=== PATIENT | male | born 1955 | race Caucasian/White ===

== ENCOUNTER 2019-07-08 10:56 | Observation (INO) ==
--- NOTE | 2019-06-16 22:10 | History and Physical Report ---
DATE OF ADMISSION: 06/24/2019 CHIEF COMPLAINT: Right knee pain, discomfort and instability. 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 He has a long history of right knee pain and discomfort dating back many years. He has previously been followed by Dr. Fortune as well as Dr. Slaughter over the [place] area. He has had extensive conservative treatment including various medicines, viscosupplementation, and steroid injections which initially worked reasonably well. Over the past several years, the shots and treatment have not helped at all. He has become more disabled by his knee pain. It is global pain. The more he walks, the more it hurts. 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 He is concerned about losing his job as a result. He does have a history of posttraumatic stress disorder and this discomfort really at times gets the best of him. He is adamantly desiring surgical management as soon as possible. He has put this off for some time, but feels like now it is limiting his ability to perform his job safely. PAST MEDICAL HISTORY: 1. Hypothyroidism. 2. Posttraumatic stress disorder. 3. Low back pain/sciatica. 4. Osteoarthritis. PAST SURGICAL HISTORY: Previous surgeries include back surgery in 2016. ALLERGIES: 1. LEVOTHYROXINE. 2. CIPRO. CURRENT MEDICINES: Include: 1. Celebrex 200 mg a day. 2. Synthroid 125 mcg a day. 3. Unspecified - medicine. 4. Tamsulosin 0.4 mg twice a day. 5. Sudafed as needed. 6. Tylenol. 7. Vitamin D3. 8. Vitamin C. SOCIAL HISTORY: Significant for a 64-year-old male. He lives in [place]. 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 He does not drink. No smoking history. FAMILY HISTORY: Significant for DVT. REVIEW OF SYSTEMS: Negative for diabetes, neurologic problem, vascular problems or bleeding disorders. Denies any chest pain, shortness of breath. He has no history of DVT. He does have this significant posttraumatic stress disorder. PHYSICAL EXAMINATION: GENERAL: Shows a pleasant, middle-aged male. Looks to be in pretty good health. HEENT: Benign. NECK: Supple, no lymphadenopathy. LUNGS: Clear to auscultation. HEART: Has a regular rate and rhythm. ABDOMEN: Soft, nontender, nondistended. EXTREMITIES: Grossly neurovascularly intact except as follows. Examination of the right knee reveals the patient walks with a slight bit of a limp. He has got varus alignment to his knee with a little bit of a varus thrust with weightbearing. He has got small knee effusion. He is tender over the medial joint line. Range of motion is about 5 degrees, show full extension and 125 degrees of flexion. There is no instability. No pain with hip motion. X-RAYS: X-rays of the right knee reviewed. Shows advanced right knee DJD. He has got complete loss of his medial joint space. He has got osteophytes off the medial femoral condyle and medial tibial plateau. He has got a little bit of tibial femoral subluxation. ASSESSMENT: A 64-year-old male with advanced right knee degenerative joint disease. He has failed conservative care and his disease has symptomatically progressed significantly over the past year that he is having difficulty dealing with this, especially with his underlying posttraumatic stress disorder. He does not feel that he can continue performing his job in a safe fashion and his knee puts him at risk in doing that. PLAN: We discussed treatment options. He is adamant about proceeding with knee replacement. We will take him to the Operating Room and do right total knee replacement. The risks and benefits of this procedure were explained to the patient including but not limited to DVT, PE, , infection, neurological injury, vascular injury, bleeding problem, pain, limited range of motion, stiffness, failure to relieve his symptoms, incomplete relief of symptoms, need for further surgery in future, fracture, leg length inequality, nerve palsy and persistent pain. The patient understands and desires to proceed. Informed consent was obtained. This surgery is essential for this patient at this time due to his severe limitation due to the pain and his ability to perform his job in a safe and adequate fashion as a asset protection officer. Any further delay this patient feels puts him at risk in his occupation and limits his ability to do his job. It is also affecting his psyche with his posttraumatic stress disorder. I did explain to him the social situation now with the COVID epidemic and he is fully aware of this. He realizes he is at increased risk for disease transmission having surgery at this point and he is fully aware and wants to proceed. He is adamant about having the surgery, not putting off any further. He is planning to be discharged to home with some [facility]. ALEXANDER
--- NOTE | 2019-06-17 11:00 | Anesthesiology Consultation ---
Date of Service June 17, 2019 Assessment & Plan (1) Encounter for pre-operative examination: Chart Review Chart Review: Acceptable Risk for Surgery and Patient NOT seen in Pre Admission Testing History Surgery Operation Date: 06/24/19 07:00 Proposed Procedures p Right Total Knee Replacement - Josue Vale MD Height/Weight Height: 5 ft 10 in Weight: 111.13 kg Allergies Allergy/AdvReac Type Severity Reaction Status Date / Time levothyroxine sodium Allergy Severe "EVERYTHING Verified 06/17/19 09:33 [From Synthroid] IN BODY LOCKS UP" ciprofloxacin AdvReac Intermediate N/V Verified 06/17/19 09:30 amoxicillin [From Augmentin] AdvReac vomiting/di Verified 06/17/19 10:57 arrhea clavulanic acid AdvReac vomiting/di Verified 06/17/19 10:57 [From Augmentin] arrhea Medications Home Medications Medication Instructions Recorded Confirmed Last Taken methenamine hippurate 1 gram tablet 1 gm PO BID #180 tab 01/27/19 06/17/19 Unknown tamsulosin 0.4 mg capsule 0.4 mg PO BID #180 cap 02/18/19 06/17/19 Unknown acetaminophen 500 mg tablet 500 mg PO Q6H PRN 03/25/19 06/17/19 Unknown ascorbate calcium (vitamin C) 500 1,000 mg PO BID 03/25/19 06/17/19 Unknown mg tablet celecoxib 200 mg capsule 200 mg PO DAILY 03/25/19 06/17/19 Unknown pseudoephedrine HCl 120 mg 120 mg PO Q12H PRN 03/25/19 06/17/19 Unknown tablet,extended release cholecalciferol (vitamin D3) 125 mcg PO BID 06/17/19 06/17/19 Unknown [Vitamin D3] levothyroxine [Synthroid] 125 mcg PO QAM 06/17/19 06/17/19 Unknown mometasone 1 spray INTRANASAL BID 06/17/19 06/17/19 Unknown Past Medical History Medical History BPH (benign prostatic hyperplasia) Degenerative disc disease Fatty liver History of anxiety History of kidney stones Hypothyroidism Migraines Osteoarthritis PTSD (post-traumatic stress disorder) Right knee DJD Rotator cuff tear LEFT SIDE Past Family History Family History Other No significant family history Past Surgical History Surgical History History of cataract surgery RT/LEFT History of colonoscopy History of cystoscopy X 2 History of lumbar surgery "NOT FUSED" Social History Smoking Status: Never smoker Do You Dip or Chew Tobacco: No Hx Alcohol Use: No Hx Substance Use: No substance use type: does not use Testing Laboratory Results Blood Type O Positive 06/16/19 10:13 Antibody Screen NEGATIVE 06/16/19 10:13 06/16/19 WBC: 4.93 H/H: 15.4/44.6 PLATELETS: 183 SODIUM: 138 POTASSIUM: 3.8 CHLORIDE: 109 CO2: 24 BUN: 19 CREATININE: 0.82 GLUCOSE: 103 PT: 11.6 PTT: 29.8 INR: 1.1 Electrocardiogram Date: 06/16/19 Findings: + NSR @ (76) left axis deviation. Chest X-Ray Date: 06/16/19 Findings: + NAD
[~2019-07-08 10:56] MED LIST: ACETAMINOPHEN 500 MG TAB PO SCH; BUPIVACAINE 0.5 % 5 MG/1 ML PF 10ML VIAL ONE; BUPIVACAINE LIPOSOME/PF 266 MG, BUPIVACAINE/EPINEPHRINE 50 ML, SODIUM CHLORIDE 0.9% 30 ... INFIL SCH; CEFAZOLIN 2000MG 2,000 MG/15 ML SYR IV SCH; EPINEPHrine INJ 1 MG/ML AMP ONE; FAMOTIDINE 20 MG TAB PO SCH; GABAPENTIN 300 MG CAP PO SCH; LR 500ML BOLUS, THEN 15ML/HR IV SCH; LR 60ML/HR IV SCH; METOCLOPRAMIDE HCL 10 MG TABLET PO SCH; ROPIVACAINE 0.5% 5 MG/ML 30 ML VIAL ONE; SCOPOLAMINE 1.5 MG TDSY TD SCH; TRANEXAMIC ACID 1,000 MG **IV Intra-op IV SCH
--- NOTE | 2019-07-08 11:51 | History & Physical Bridge Note ---
Date of Service July 08, 2019 History & Physical Bridge Note I have examined the patient, reviewed the History & Physical and in the interval since the performance of the History & Physical I have noted the following changes of clinical significance: no changes noted
[2019-07-08] MEDS ORDERED: HYDROmorphone INJ 1 MG/ML SYRINGE IV PRN (11:58)
[2019-07-08] MEDS ORDERED: ATROPINE SULFATE 0.1 MG/ML 10ML SYR IV PRN (11:58)
[2019-07-08] MEDS ORDERED: fentaNYL citrate 100 MCG/2 ML VIAL IV PRN (11:58)
[2019-07-08] MEDS ORDERED: ePHEDrine sulfate 50 MG/ML AMP IV PRN (11:58)
[2019-07-08] MEDS ORDERED: LABETALOL HCL IV 5 MG/ML 20ML IV PRN (11:58)
[2019-07-08] MEDS ORDERED: MEPERIDINE HCL 25 MG/ML CARP/VIAL IV PRN (11:58)
[2019-07-08] MEDS ORDERED: ONDANSETRON INJ 2 MG/ML 2 ML VIAL IV PRN ×2 (11:58→16:43)
[2019-07-08] MEDS ORDERED: PHENYLEPHRINE 100MCG/ML 5ML SYR IV PRN (11:58)
[2019-07-08] MEDS ORDERED: fentaNYL citrate 100 MCG/2 ML VIAL ONE (13:22)
[2019-07-08] MEDS ORDERED: MIDAZOLAM HCL 1 MG/ML 2ML VIAL ONE (13:22)
[2019-07-08] MEDS ORDERED: BUPIVACAINE/EPINEPHRINE 0.25% 1:200,000 30 ML VIAL ONE (13:42)
[2019-07-08] MEDS ORDERED: BUPIVACAINE LIPOSOME 1.3% 266 MG/20 ML VIAL ONE (13:42)
[2019-07-08] MEDS ORDERED: BACITRACIN INJ 50,000 UNIT VIAL ONE (13:42)
[2019-07-08] MEDS ORDERED: SODIUM CHLORIDE 0.9% PF 50 ML VIAL ONE (13:42)
[2019-07-08] MEDS ORDERED: ONDANSETRON INJ 2 MG/ML 2 ML VIAL ONE (14:23)
[2019-07-08] MEDS ORDERED: PROPOFOL IV EMULSION 10 MG/ML 20 ML VIAL IV ONE ×3 (14:23→15:26)
[2019-07-08] MEDS ORDERED: LIDOCAINE HCL 2% 2 ML VIAL/AMP(20MG/ML) INFIL ONE (14:23)
[2019-07-08] MEDS ORDERED: PHENYLEPHRINE 100MCG/ML 5ML SYR ONE (14:23)
--- NOTE | 2019-07-08 15:43 | Post Operative Brief Note ---
PG Immediate Post Op with CF Date of Surgery July 08, 2019 Pre & Post Diagnosis Operation Date: 07/08/19 13:20 Pre-Op Diagnosis: RIGHT KNEE DEGENERATIVE JOINT DISEASE W/KNEE PAIN Post-Op Diagnosis: RIGHT KNEE DEGENERATIVE JOINT DISEASE W/KNEE PAIN I identified the patient and participated in the time-out.: Yes Procedure Operation Date: 07/08/19 13:20 Actual Procedures p Right Total Knee Replacement(Right) - Josue Vale MD Surgeon Josue Vale MD Swamper Jabier, [facility] Estimated Blood Loss 50 Findings Consistent with Post-Op Diagnosis Fluids 2000 cc Specimens Specimen Description: Permanent Specimen: A) Right Knee Bone and Tissue Drains Baker Catheter Anesthesia Type Spinal MAC Complications none Disposition Accompanied Patient To Recovery: Yes Disposition: Recovery Room
--- NOTE | 2019-07-08 15:55 | Operative Report ---
Post Operative Report Pre & Post Diagnosis Operation Date: 07/08/19 13:20 Pre-Op Diagnosis: RIGHT KNEE DEGENERATIVE JOINT DISEASE W/KNEE PAIN Post-Op Diagnosis: RIGHT KNEE DEGENERATIVE JOINT DISEASE W/KNEE PAIN I identified the patient and participated in the time-out.: Yes Procedure Operation Date: 07/08/19 13:20 Actual Procedures p Right Total Knee Replacement(Right) - Josue Vale MD Surgeon Josue Vale MD [employer] Work[employer] Jabier, PAC Estimated Blood Loss 50 Findings Consistent with Post-Op Diagnosis Operative findings were revealed advanced right knee DJD with extensive grade 4 [id number] disease of the medial femoral condyle medial tibial plateau as well as pretty significant grade 4 changes throughout the patellofemoral joint. He had a moderate-sized joint effusion. Osteophytes primarily in the medial compartment. Fluids 2000 cc Specimens Right knee sent for pathology. Drains None. 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 He has been through extensive conservative treatment by multiple physicians in the past. This pain came became more debilitating and unresponsive conservative care and he elected proceed with surgical treatment. Description of Procedure Operative implants consist of: 1. Biomet Vanguard size 67.5 right posterior by femoral component. 2. Biomet size 71 tibial tray. 3. 10 mm posterior box polyethylene insert. 4. 31 x 8 all poly-patella. Patient was taken to the operating room identified and placed on the operating table supine position protectors were properly padded. IV antibiotics arrived by anesthesia team. A spinal anesthetic and abductor canal block had provided in the holding area. Baker catheter was placed in sterile fashion. Right thigh turn was then placed in the right lower extremities and prepped and draped in usual sterile fashion. The right leg was elevated and exsanguinated with use of an Esmarch interspace at 300 mmHg. An anterior process of the right knee was then performed through a longitudinal incision centered over the patella. Sharp dissection was carried through subcutaneous tissue down below the extensor mechanism. A medial parapatellar arthrotomy incision was made. Some subperiosteal dissection was carried out medially. The fat pad was resected from each patella tendon. Lateral patellofemoral ligament was released. Patella was subluxated laterally and the knee was flexed. The osteophytes were taken off the distal femur. The ACL and PCL were then resected and the tibia subluxated anterior anteriorly. The external tibial alignment jig was then placed in the interface of the tibia and adjusted 14 mm medially. Proximal tibial cut was made to move about 3 to 4 mm of bone from the medial side. He did not a lot have a lot of bone deficiency. Some osteophytes were taken off posterior medially. The tibia was sized to a size 71. Attention drawn the femur. The distal femur was entered with a sharp drop with intramedullary canal was suction. A right 6 degree valgus cutting guide was placed. Distal femoral cutting block was pinned in place. Distal femoral cut was made to take an additional 3 mm bone off distal femur. Femur was then sized to a size 67.5. We did downsize this about a half a size. The AP cutting block was pinned parallel to the epicondylar axis which was 3 degrees of external rotation. The anterior cut, anterior chamfer, posterior cut, posterior chamfer cuts were made. Box cutting guide was placed in just slight lateral box cut was made. The knee was flexed. The remnants of medial lateral menisci were excised. The osteophytes were taken off the posterior aspect the femur. A trial femoral component was placed. The tibial tray was pinned in maximum external rotation drill and stem punch we used to create defect in proximal tip for the tibial tray. The knee was then trialed and the 10 mm insert fit most appropriately. Attention drawn to the patella. The patella was cleaned of all soft tissues. Patella thickness measured 23 mm in thickness and was cut down to 13. Was sized to a size 31 patella. Locals were drilled for 31 patella. The lateral osteophyte was removed. Patella button was placed. Knee was taken through range of motion patella tracked tracked nicely with no thumbs test. Attention drawn to placing permanent components. All trial components were removed. A bone plug was placed in the disc femur limit blood loss. The wound was irrigated extensively. A double batch [place] G cement was mixed. A Biomet Vanguard size 67.5 right posterior by femoral component, size 71 tibial tray, 10 mm posterior box polyethylene insert, and a 31 x 8 all poly-patella then cement placed. Knee was brought under full extension total cement hardened. Final cement check was then performed. The pericapsular tissues were injected with total 100 cc of combination of 20 cc of Exparel, 30 cc normal saline, 50 cc of quarter percent Marcaine with epinephrine. Patient did receive 1 g tranexamic acid per the tourniquet was then let down for final turn time of 51 minutes. Hemostasis assured use electrocautery. The wounds once again irrigated. Extensor macros then closed with combination 1 PDS suture #1 Vicryl suture in [id number] fashion for extensor mechanism checked found to be intact the subcutaneous tissue then closed with 2 Dexon suture in a buried inner fashion skin was closed skin xu. Leg was then cleaned dried a sterile dressing composed Xeroform, 4 x 4's, sterile cast padding, Jesus bandage were applied. Patient was then transferred to the recovery room in stable condition. Patient tolerated procedure well no complications. I attest to the content of the Intraoperative Record and any orders documented therein. Any exceptions are noted below.
--- NOTE | 2019-07-08 16:00 | Anesthesiology Progress Note ---
Date of Service July 08, 2019 Anesthesia Post Procedure Vital Signs Vital Signs: Temp Pulse Pulse Resp BP Pulse Ox 07/08/19 15:50 84 15 117/56 L 99 07/08/19 15:42 97.0 F L 94 H 18 100/54 L 95 07/08/19 11:23 98.2 F 98 H 20 131/94 97 Pain Intensity Right Knee: Pain Intensity: 4 Transfer of Care Handoff Completed per policy Notes Mental Status: alert / awake / arousable and participated in evaluation Patient Amnestic to Procedure: Yes Nausea / Vomiting: adequately controlled Pain: adequately controlled Airway Patency, RR, SpO2: stable & adequate BP & HR: stable & adequate Hydration State: stable & adequate Neuraxial Anesthesia: was administered and sensory block is resolving Anesthetic Complications: no major complications apparent and Pt Satisfied with anesthetic care
--- NOTE | 2019-07-08 16:13 | XRay Report ---
XR knee RT 1 or 2V routine CLINICAL HISTORY: Surgical Post Op COMPARISON: March 2019 DISCUSSION: There are postsurgical changes of a total right knee arthroplasty and patellar resurfacin g. The femoral tibial components appear well seated. No fractures or subluxations are visualized. The re is gas present within the soft tissues consistent with recent surgery. There are overlying skin st aples. IMPRESSION: Postsurgical changes of a total right knee arthroplasty. ACT 112: Negative or not required by law. Electronically signed by: Nabor Salazar M.D. 07/08/2019 4:12 PM
[2019-07-08] MEDS ORDERED: METOCLOPRAMIDE HCL INJ 5 MG/ML 2 ML VIAL IV PRN (16:43)
[2019-07-08] MEDS ORDERED: MAGNESIUM HYDROXIDE SUSP 30 ML UDC PO PRN (16:43)
[2019-07-08] MEDS ORDERED: ALUMINUM/MAGNESIUM SUSP 30 ML UDC PO PRN (16:43)
[2019-07-08] MEDS ORDERED: NALOXONE HCL 0.4 MG/1 ML VIAL/CARP IV PRN (16:43)
[2019-07-08] MEDS ORDERED: bisacodyL 10 MG SUPP PR PRN (16:43)
[2019-07-08] MEDS ORDERED: HYDROmorphone INJ 0.5 MG/0.5 ML SYR IV PRN (16:43)
[2019-07-08] MEDS ORDERED: PSEUDOEPHEDRINE HCL 30 MG TAB PO PRN (16:59)
[2019-07-08] MEDS: SODIUM CHLORIDE 0.9% 1000ML 1,000 ML IV SCH (17:24)
[2019-07-08] MEDS: CHECK SCOPOLAMINE PATCH PLACEMENT SCH ×2 (17:24→23:32)
[2019-07-08] MEDS: KETOROLAC 30 MG/ML VIAL IV SCH ×2 (17:27→23:32)
[2019-07-08] MEDS: FERROUS GLUCONATE 324 MG TAB PO SCH (18:06)
[2019-07-08] MEDS: ASCORBIC ACID 500 MG TAB PO SCH (18:06)
[2019-07-08] MEDS ORDERED: ASCORBATE CALCIUM 1000 MG PO SCH (21:00)
[2019-07-08] MEDS: TAMSULOSIN HCL 0.4 MG CAP PO SCH (21:05)
[2019-07-08] MEDS: ASPIRIN 81 MG ECTAB PO SCH (21:05)
[2019-07-08] MEDS: DOCUSATE SODIUM 100 MG CAP PO SCH (21:05)
[2019-07-08] MEDS: SENNA 8.6 MG TAB PO SCH (21:06)
[2019-07-08] MEDS: METHENAMINE HIPPURATE 1 GM TAB PO SCH (21:06)
[2019-07-08] MEDS: CHOLECALCIFEROL 1,000 UNITS 25 MCG TAB PO SCH (21:09)
[2019-07-08] MEDS: ACETAMINOPHEN 500 MG TAB PO SCH (21:10)
[2019-07-08] MEDS: TAPENTADOL HCL ER 50 MG TABCR PO SCH (21:27)
[2019-07-08] MEDS: CEFAZOLIN 2000MG 2,000 MG/15 ML SYR IV SCH (21:28)
[2019-07-08] MEDS ORDERED: TRANEXAMIC ACID / 0.7% NACL 1,000 MG/100 ML BAG IV SCH (22:00)
[2019-07-08] MEDS: OXYCODONE HCL IR 5 MG TAB (IMMEDIATE RELEASE) PO PRN (22:30)
[2019-07-09] MEDS: SODIUM CHLORIDE 0.9% 1000ML 1,000 ML IV SCH (01:20)
[2019-07-09 05:14] LABS: Hematocrit (blood only) 36.3 % (42-52); Hemoglobin 12.2 g/dL (14.0-18.0); Mean Corpuscular Hemoglobin 33.2 pg (25-34); Mean Corpuscular Hgb Conc 33.6 g/dL (32-36); Mean Corpuscular Volume 98.6 fL (80-100); Mean Platelet Volume 10.4 fL (7.4-10.4); Platelet Count 154 K/uL (130-400); RDW Coefficient of Variation 12.9 % (11.5-14.5); RDW Standard Deviation 46.5 fL (36.4-46.3); Red Blood Count 3.68 M/uL (4.7-6.1)
[2019-07-09] MEDS: ACETAMINOPHEN 500 MG TAB PO SCH ×3 (05:22→21:45)
[2019-07-09] MEDS: LEVOTHYROXINE SODIUM 125 MCG TABLET PO SCH (05:23)
[2019-07-09] MEDS: KETOROLAC 30 MG/ML VIAL IV SCH ×4 (05:24→23:46)
[2019-07-09] MEDS: CEFAZOLIN 2000MG 2,000 MG/15 ML SYR IV SCH (05:25)
[2019-07-09 05:52] LABS: BUN Creatinine Ratio 15.5 (10-20); Calcium 8.2 mg/dl (8.5-10.1); Creatinine Clr Calc Pharmacy 102.3 ml/min; Est GFR (African American) 100.3; Est GFR (Non-African American) 86.5; Potassium 4.4 mmol/L (3.5-5.1)
[2019-07-09] MEDS: CHECK SCOPOLAMINE PATCH PLACEMENT SCH ×3 (08:34→23:46)
--- NOTE | 2019-07-09 08:34 | Progress Notes ---
DATE: 07/09/2019 SUBJECTIVE: A 64-year-old gentleman postop day 1 from a right knee replacement. He is doing pretty well. Knee is a bit sore this morning. No chest pain or shortness of breath. Not feeling dizzy or lightheaded. OBJECTIVE: VITAL SIGNS: Temperature 36.9. Vital signs stable. GENERAL: Shows a pleasant, middle-aged male. He is walking with a walker to the bathroom, I visited him this morning. EXTREMITIES: Examination of the right knee reveals the dressing to be in place. There is a little bit of bloody drainage anteriorly. He can dorsiflex and plantarflex his foot appropriately. He is neurologically intact. LABORATORY DATA: Hemoglobin 12.2. Hematocrit 36.3. Electrolytes are stable. ASSESSMENT: A 64-year-old gentleman postop day 1 from right knee replacement, doing pretty well. Pain is controlled. He is neurologically intact. PLAN: 1. DVT prophylaxis including thigh-high TEDs, SCDs, and aspirin twice a day. 2. PT/OT. Weight bear as tolerated. Right total knee protocol. 3. Pain control, doing pretty well with current pain regimen. 4. Disposition: He is planning to be discharged to home with some home health once adequately recovered and medically stable.
[2019-07-09] MEDS: ASCORBIC ACID 500 MG TAB PO SCH ×2 (08:35→17:43)
[2019-07-09] MEDS: FERROUS GLUCONATE 324 MG TAB PO SCH ×2 (08:35→17:43)
[2019-07-09] MEDS: DOCUSATE SODIUM 100 MG CAP PO SCH ×2 (08:35→17:43)
[2019-07-09] MEDS: TAMSULOSIN HCL 0.4 MG CAP PO SCH ×2 (08:36→20:48)
[2019-07-09] MEDS: ASPIRIN 81 MG ECTAB PO SCH ×2 (08:36→20:48)
[2019-07-09] MEDS: FLUTICASONE PROPIONATE NA SPR 16 GM BTL NAE SCH (08:36)
[2019-07-09] MEDS: METHENAMINE HIPPURATE 1 GM TAB PO SCH ×2 (08:37→20:47)
[2019-07-09] MEDS: TAPENTADOL HCL ER 50 MG TABCR PO SCH ×2 (08:37→20:47)
[2019-07-09] MEDS: MULTIVITAMIN TAB PO SCH (08:37)
[2019-07-09] MEDS: CHOLECALCIFEROL 1,000 UNITS 25 MCG TAB PO SCH ×2 (08:37→21:44)
[2019-07-09] MEDS: OXYCODONE HCL IR 5 MG TAB (IMMEDIATE RELEASE) PO PRN ×3 (12:06→23:45)
[2019-07-09] MEDS: SENNA 8.6 MG TAB PO SCH (17:42)
[2019-07-10] MEDS: ACETAMINOPHEN 500 MG TAB PO SCH (05:18)
[2019-07-10] MEDS: KETOROLAC 30 MG/ML VIAL IV SCH (05:19)
[2019-07-10] MEDS: LEVOTHYROXINE SODIUM 125 MCG TABLET PO SCH (05:19)
[2019-07-10] MEDS: OXYCODONE HCL IR 5 MG TAB (IMMEDIATE RELEASE) PO PRN (07:27)
[2019-07-10] MEDS: TAMSULOSIN HCL 0.4 MG CAP PO SCH (07:28)
[2019-07-10] MEDS: TAPENTADOL HCL ER 50 MG TABCR PO SCH (07:28)
[2019-07-10] MEDS: ASPIRIN 81 MG ECTAB PO SCH (07:28)
[2019-07-10] MEDS: METHENAMINE HIPPURATE 1 GM TAB PO SCH (07:29)
[2019-07-10] MEDS: DOCUSATE SODIUM 100 MG CAP PO SCH (07:29)
[2019-07-10] MEDS: FERROUS GLUCONATE 324 MG TAB PO SCH (07:29)
[2019-07-10] MEDS: MULTIVITAMIN TAB PO SCH (07:29)
[2019-07-10] MEDS: CHOLECALCIFEROL 1,000 UNITS 25 MCG TAB PO SCH (07:29)
[2019-07-10] MEDS: ASCORBIC ACID 500 MG TAB PO SCH (07:29)
[2019-07-10] MEDS: FLUTICASONE PROPIONATE NA SPR 16 GM BTL NAE SCH (07:30)
[2019-07-10] MEDS: CHECK SCOPOLAMINE PATCH PLACEMENT SCH (07:30)
--- NOTE | 2019-07-10 08:32 | Progress Notes ---
DATE: 07/10/2019 SUBJECTIVE: A 64-year-old gentleman postop day 2 from right knee replacement. He is doing pretty well. His knee is sore but the pain is reasonably controlled. No chest pain or shortness of breath. Not feeling dizzy or lightheaded. OBJECTIVE: VITAL SIGNS: Temperature 36.9. Vital signs stable. GENERAL: Shows a pleasant, middle-aged male. He is sitting up in bed, looks pretty comfortable. He is currently doing heel prop. EXTREMITIES: Examination of the right leg reveals the dressing to be in place. Just a slight bit of bloody drainage inferiorly. His calf is soft and supple. He can dorsiflex and plantarflex his foot appropriately. He is neurologically intact. ASSESSMENT: A 64-year-old gentleman postoperative day 2 from right knee replacement, doing pretty well. Pain is controlled. He is neurologically intact. PLAN: 1. DVT prophylaxis including thigh-high TEDs, SCDs, and aspirin twice a day. 2. PT/OT. Weight bear as tolerated. Right total knee protocol. 3. Pain control, doing pretty well with current pain regimen. 4. Disposition: Plan to discharge to home with some home health later today.
--- NOTE | 2019-07-10 15:25 | Pharmacy Report ---
ED Pharmacist Progress Note - ED Pharmacist Progress Note Date of Service:: July 10, 2019 Notes:: Received call from [facility] pharmacy asking to confirm instruction for oxycodone- confirmed instructions on prescription read may take 1-2 tablets every 6 hours as needed.
--- NOTE | 2019-07-11 15:40 | Discharge Summary ---
Date of Service July 11, 2019 Admission HPI Per Admitting Provider Documented in the admission H&P Admission Exam (Per Admitting) Constitutional Documented in the admission H&P Discharge Data Consultations 07/08/19 16:43 Consult Case Management - Discharge Planning Routine Procedures Performed Operation Date: 07/08/19 13:20 Actual Procedures p Right Total Knee Replacement(Right) - Josue Vale MD Hospital Course (1) Status post total right knee replacement: 64-year-old male admitted on 07/08/2019 underwent total knee arthroplasty. He tolerated procedure well there were no complications. Transferred to the PACU postoperatively and later to the orthopedic for further care. He was given Ancef for antibiotic prophylaxis. ROBIN stockings, SCDs, and aspirin for DVT prophylaxis. Hemoglobin hematocrit and vital signs are monitored during his hospital stay remained stable. He not requiring blood transfusions. There were no complications. Postoperative day 2 is tolerating a regular diet, pain is controlled with oral pain medicine, and is participating in physical therapy. Postop day 2 is discharged home set up with home health services. He was given printed discharge instructions as well as new prescriptions for extra Tylenol, aspirin, oxycodone. He continues home medications. Continue physical therapy. He is weightbearing as tolerated. Continue ROBIN stockings. Follow-up approximately 2 weeks postop or sooner if any problems or concerns. Coding Level of Care Code None Diagnoses Status post total right knee replacement Z96.651
== END 2019-07-10 11:42 | disposition home health service (06) ==
LOC: ASU 10:56 → 3E 10:56

== ENCOUNTER 2021-07-04 07:58 | Observation (INO) ==
--- NOTE | 2021-05-31 11:01 | PAT Medication Instructions ---
Medication Instructions Date of Service May 31, 2021 Home Medications Medication Instructions Recorded Catarino Hose #1 ea 07/25/19 methenamine hippurate 1 gram tablet 1 g PO BID #180 tab 05/23/20 tamsulosin 0.4 mg capsule 0.4 mg PO BID #180 cap 05/23/20 Shower Chair #1 ea 05/20/21 acetaminophen 500 mg tablet 500 mg PO Q6H PRN ascorbate calcium (vitamin C) 500 mg tablet 1,000 mg PO BID celecoxib 200 mg capsule 200 mg PO PM pseudoephedrine HCl 120 mg tablet,extended release (Nasal Decongestant (pseudoephedrine)) 120 mg PO Q12H PRN cholecalciferol (vitamin D3) 125 mcg (5,000 unit) tablet (Vitamin D3) 125 mcg PO QAM levothyroxine 125 mcg tablet (Synthroid) 125 mcg PO QAM Catarino Castilloe #1 ea methenamine hippurate 1 gram tablet 1 g PO BID tamsulosin 0.4 mg capsule 0.4 mg PO BID Shower Chair #1 ea potassium gluconate 595 mg (99 mg) tablet 595 mg PO PM selenium 200 mcg tablet 200 mcg PO QAM ASK your surgeon for instructions celecoxib 200 mg capsule 200 mg PO PM STOP taking 2 weeks before surgery selenium 200 mcg tablet 200 mcg PO QAM DO NOT take the morning of surgery ascorbate calcium (vitamin C) 500 mg tablet 1,000 mg PO BID pseudoephedrine HCl 120 mg tablet,extended release (Nasal Decongestant (pseudoephedrine)) 120 mg PO Q12H PRN cholecalciferol (vitamin D3) 125 mcg (5,000 unit) tablet (Vitamin D3) 125 mcg PO QAM Take morning of surgery With a small sip of water, OTHERWISE NOTHING TO EAT OR DRINK AFTER MIDNIGHT: acetaminophen 500 mg tablet 500 mg PO Q6H PRN(okay to take up to 4 hours prior to surgery if needed) levothyroxine 125 mcg tablet (Synthroid) 125 mcg PO QAM tamsulosin 0.4 mg capsule 0.4 mg PO BID methenamine hippurate 1 gram tablet 1 g PO BID Take evening before surgery acetaminophen 500 mg tablet 500 mg PO Q6H PRN(if needed) ascorbate calcium (vitamin C) 500 mg tablet 1,000 mg PO BID pseudoephedrine HCl 120 mg tablet,extended release (Nasal Decongestant (pseudoephedrine)) 120 mg PO Q12H PRN(if needed) tamsulosin 0.4 mg capsule 0.4 mg PO BID potassium gluconate 595 mg (99 mg) tablet 595 mg PO PM methenamine hippurate 1 gram tablet 1 g PO BID Other Notes If you have any questions please call us at [phone] or [phone] or [phone] or [phone]
--- NOTE | 2021-06-04 13:17 | Anesthesiology Consultation ---
Date of Service June 04, 2021 Assessment & Plan (1) Encounter for pre-operative examination: - COVID screening: Per assessment on 06/04/2021: Travel screen negative, no known COVID-19 positive contacts or current COVID-19 related symptoms in past 2 weeks. Patient vaccinated. Surgeon arranging preop COVID testing, scheduled 07/02/2021. Awaiting results. Chart Review Chart Review: Acceptable Risk for Surgery and Patient seen in Pre Admission Testing Teaching & Discussion Pre-Anesthesia Teaching/Discussion Notes: Instructed NPO after midnight before surgery, except medications with 15 cc of water. Medication instructions provided according to the PAT guidelines. History Surgery Operation Date: 07/04/21 10:40 Proposed Procedures p Left Knee Replacement - Josue Vale MD Height/Weight Height: 5 ft 11 in Weight: 112.7 kg Allergies Allergy/AdvReac Type Severity Reaction Status Date / Time levothyroxine sodium Allergy Severe allergy-generic: Verified 06/04/21 13:44 [From Synthroid] "EVERYTHING IN BODY LOCKS UP" amoxicillin [From Augmentin] AdvReac Intermediate vomiting/di Verified 05/31/21 07:31 arrhea ciprofloxacin AdvReac Intermediate N/V Verified 05/31/21 07:31 clavulanic acid AdvReac Intermediate vomiting/di Verified 05/31/21 07:31 [From Augmentin] arrhea Medications Home Medications Medication Instructions Recorded Confirmed Last Taken acetaminophen 500 mg tablet 500 mg PO Q6H PRN 03/25/19 05/31/21 07/07/19 21:00 ascorbate calcium (vitamin C) 500 1,000 mg PO BID 03/25/19 05/31/21 Unknown mg tablet celecoxib 200 mg capsule 200 mg PO PM 03/25/19 05/31/21 Unknown pseudoephedrine HCl 120 mg 120 mg PO Q12H PRN 03/25/19 05/31/21 07/07/19 11:45 tablet,extended release (Nasal Decongestant (pseudoephedrine)) cholecalciferol (vitamin D3) 125 125 mcg PO QAM 06/17/19 05/31/21 Unknown mcg (5,000 unit) tablet (Vitamin D3) levothyroxine 125 mcg tablet 125 mcg PO QAM 06/17/19 05/31/21 07/08/19 06:20 (Synthroid) Catarino Osborne #1 ea 07/25/19 05/31/21 Unknown methenamine hippurate 1 gram tablet 1 g PO BID #180 tab 05/23/20 05/31/21 Unknown tamsulosin 0.4 mg capsule 0.4 mg PO BID #180 cap 05/23/20 05/31/21 Unknown Shower Chair #1 ea 05/20/21 05/31/21 Unknown potassium gluconate 595 mg (99 mg) 595 mg PO PM 05/31/21 05/31/21 Unknown tablet selenium 200 mcg tablet 200 mcg PO QAM 05/31/21 05/31/21 Unknown Past Medical History Medical History (Updated 06/04/21 @ 15:56 by Bisi Obando PA-C) BPH (benign prostatic hyperplasia) Degenerative disc disease Fatty liver History of anxiety History of COVID-29 May 2019 > not hospitalized History of kidney stones Hypothyroidism Migraines Osteoarthritis PTSD (post-traumatic stress disorder) related to work, denies palak-operative requests Rotator cuff tear bilat > no surgery gets steroid injections Sleep apnea not currently treating Patient denies h/o stroke, seizures, heart attack, heart failure, DM, HTN, blood clots or blood transfusions. Exercise / Class Metabolic Activity II 4-5 Yardwork/Stairs/Walk up hill (occasional mild SOB with 1 FOS d/t reduced physical activity due to knee pain, denies CP) Past Family History Family History Other No significant family history Past Surgical History Surgical History History of cataract surgery RT/LEFT History of colonoscopy History of cystoscopy X 2 History of knee replacement procedure of right knee History of lumbar surgery "NOT FUSED" > 2016 Past Anesthesia History No Hx of Anesthesia Complications and No Family Hx of Anesthesia Complications History of PONV No Hx of PONV and No Hx of Motion Sickness Social History Smoking Status: Never smoker Do You Dip or Chew Tobacco: No Hx Alcohol Use: No Hx Substance Use: No substance use type: does not use Review of Systems Patient denies chest pain, shortness of breath, reflux, fever, chills, cough, wh eezing, or palpitations. Physical Exam Vital Signs Vitals BP 132/77 P 88 TEMP 98.5 SP02 95% on RA RESP 17 Physical Full cervical extension range of motion without pain TMD 3.5 finger breaths Mallampati Score 3 Dentition: intact, chipped lower right front tooth Lungs: normal respiratory effort. Clear throughout to auscultation, no adventitious breath sounds Cardiac: regular rate and rhythm, no murmurs noted Carotid arteries: negative bruit bilat Lab Results Anesthesia Preop Results Results Anesthesia Widget: WBC 5.32 K/uL (4.8-10.8) 06/04/21 Hgb 14.9 g/dL (14.0-18.0) 06/04/21 Hct 44.3 % (42-52) 06/04/21 Plt 210 K/uL (130-400) 06/04/21 Na 139 mmol/L (136-145) 06/04/21 K 4.0 mmol/L (3.5-5.1) 06/04/21 Cl 105 mmol/L (98-107) 06/04/21 CO2 26 mmol/L (21-32) 06/04/21 BUN 18 mg/dl (6-23) 06/04/21 Creat 0.89 mg/dl (0.6-1.4) 06/04/21 Glucose Level 91 mg/dl (70-99(Fasting)) 06/04/21 PT 11.4 Seconds (9.0-12.0) 06/04/21 PTT 28.5 Seconds (21.0-31.0) 06/04/21 INR 1.1 (0.9-1.1) 06/04/21 Blood Type O Positive 06/04/21 Antibody Screen NEGATIVE 06/04/21 Testing Electrocardiogram Date: 06/04/21 NSR, rate 77 bpm Left anterior fascicular block Chest X-Ray Date: 06/04/21 No lines and tubes are seen. The aorta is tortuous. The remainder of the cardiomediastinal silhouette is unremarkable. The lungs are clear. No evidence of pleural effusion or pneumothorax. IMPRESSION: No acute chest disease.
--- NOTE | 2021-06-30 15:02 | History and Physical Report ---
DATE OF ADMISSION: 07/04/2021. CHIEF COMPLAINT: Persistent left knee pain. HISTORY OF PRESENT ILLNESS: The patient is a 66-year-old gentleman well known to me from previous ri ght knee replacement done in 06/2019. He continues to be bothered by left knee pain and discomfort. He has been through extensive conservative treatment. The shots helped him maybe about a month at b est. He has become more miserable with time. He has had global pain. The more he is up and on his knees, the more it hurts. He has a limited walking tolerance. He has increased pain going up and do wn stairs. He would like to proceed with surgical treatment. He is happy with his right knee. PAST MEDICAL HISTORY: Significant for: 1. BPH. 2. Obesity with a BMI of 35. 3. Back pain. PAST SURGICAL HISTORY: Includes: 1. Cataract surgery. 2. Colonoscopy. 3. Cystoscopy. 4. Right knee replacement done on 07/08/2019. 5. Low back surgery. ALLERGIES: LEVOTHYROXINE. CURRENT MEDICATIONS: 1. Flomax. 2. Synthroid. 3. Celebrex. 4. Vitamin D3. 5. Vitamin C. 6. Methenamine. 7. Trazodone. SOCIAL HISTORY: Significant for a 66-year-old male. He is . He does not smoke. No signific ant alcohol intake. FAMILY HISTORY: Noncontributory. REVIEW OF SYSTEMS: Negative for diabetes. No chest pain or shortness of breath. No history of DVT or PE. No known bleeding problems. PHYSICAL EXAMINATION: GENERAL: Shows a pleasant middle-aged male. Looks to be in pretty good health. HEENT: Benign. NECK: Supple. No lymphadenopathy. LUNGS: Clear to auscultation. HEART: Regular rate and rhythm. ABDOMEN: Soft, nontender, nondistended. EXTREMITIES: Grossly neurovascularly intact except as follows. Examination of the left knee reveals the patient who ambulates independently. He does have a varus a lignment to his knee. He does limp a little bit on the left side. Bony hypertrophy medially. He is tender medially. Small knee effusion. Range of motion about 5-125. No instability. No pain with hip motion. Examination of the right knee reveals well-healed incision. Range of motion 0-125. Goo d straight leg raise. X-RAYS: X-rays of the left knee were reviewed. It shows advanced left knee medial compartment DJD. He has complete loss of medial joint space. He has got patellofemoral disease as well. The right k nee replacement looks to be in good position without problems. ASSESSMENT: A 66-year-old gentleman with underlying obesity, benign prostatic hyperplasia and back p ain status post a right knee replacement 2 years ago with advanced left knee degenerative joint disea se. He has failed conservative treatment and would like to have his left knee replaced. PLAN: We will take him to the operating room and do left knee replacement. The risks and benefits o f this procedure were explained to the patient and include but not limited to DVT, PE, , infecti on, neurological injury, vascular injury, bleeding problem, pain, limited range of motion, stiffness, incomplete relief of symptoms, need for further surgery in the future, etc. The patient understands and desires to proceed. Informed consent was obtained. As far as discharge plans, he is planning to be discharged to home. His can assist in his care. He is going to use [employer]. Job ID: [id number]
[~2021-07-04 07:58] MED LIST changes: -CEFAZOLIN 2000MG 2,000 MG/15 ML SYR IV SCH; -EPINEPHrine INJ 1 MG/ML AMP ONE; -GABAPENTIN 300 MG CAP PO SCH; +GABAPENTIN 600 MG DOSE PO SCH; -METOCLOPRAMIDE HCL 10 MG TABLET PO SCH; -SCOPOLAMINE 1.5 MG TDSY TD SCH; +ceFAZolin 2000MG 2,000 MG/15 ML SYR IV SCH
--- NOTE | 2021-07-04 08:46 | History & Physical Bridge Note ---
Date of Service July 04, 2021 History & Physical Bridge Note I have examined the patient, reviewed the History & Physical and in the interval since the performance of the History & Physical I have noted the following changes of clinical significance: no changes noted
[2021-07-04] MEDS ORDERED: dexAMETHasone 4 MG in SYRINGE 0 ML IV ONE (08:52)
[2021-07-04] MEDS ORDERED: DEXAMETHASONE SOD INJ 4 MG/ML VIAL ONE (09:21)
[2021-07-04] MEDS ORDERED: fentaNYL citrate 100 MCG/2 ML VIAL ONE (09:22)
[2021-07-04] MEDS ORDERED: MIDAZOLAM HCL 1 MG/ML 2ML VIAL ONE ×2 (09:22→10:45)
[2021-07-04] MEDS ORDERED: BUPIVACAINE/EPINEPHRINE 0.25% 1:200,000 30 ML VIAL ONE (09:53)
[2021-07-04] MEDS ORDERED: SODIUM CHLORIDE 0.9% PF 50 ML VIAL ONE (09:53)
[2021-07-04] MEDS ORDERED: BUPIVACAINE LIPOSOME 1.3% 266 MG/20 ML VIAL ONE (09:54)
[2021-07-04] MEDS ORDERED: PROPOFOL IV EMULSION 10 MG/ML 20 ML VIAL IV ONE ×3 (10:45)
[2021-07-04] MEDS ORDERED: PHENYLEPHRINE 100MCG/ML 5ML SYR ONE (10:46)
[2021-07-04] MEDS ORDERED: ePHEDrine sulfate 50 MG/ML SYR ONE (10:46)
[2021-07-04] MEDS ORDERED: PHENYLEPHRINE HCL 10 MG/ML VIAL ONE (10:46)
--- NOTE | 2021-07-04 12:31 | Post Operative Brief Note ---
PG Immediate Post Op with CF Date of Surgery July 04, 2021 Pre & Post Diagnosis Operation Date: 07/04/21 10:40 Pre-Op Diagnosis: Left knee osteoarthritis Post-Op Diagnosis: Left knee osteoarthritis I identified the patient and participated in the time-out.: Yes Procedure Operation Date: 07/04/21 10:40 Actual Procedures p Left Total Knee Arthroplasty(Left) - Josue Vale MD Surgeon Josue Vale MD Freight Brakeman Andrey Eugene PACarine Estimated Blood Loss 100 Findings Consistent with Post-Op Diagnosis Specimens Specimen Description: A. Left knee bone and tissue. Drains Baker Catheter
--- NOTE | 2021-07-04 12:58 | Anesthesiology Progress Note ---
Date of Service July 04, 2021 Anesthesia Post Procedure Vital Signs Vital Signs: Temp Pulse Pulse Resp BP Pulse Ox 07/04/21 12:50 72 16 112/64 98 07/04/21 12:40 76 18 114/68 98 07/04/21 12:31 36.1 C L 77 14 95/67 L 98 07/04/21 10:06 116/65 07/04/21 10:01 115/61 07/04/21 09:57 112/69 07/04/21 09:52 112/70 07/04/21 09:46 123/71 07/04/21 08:30 36.9 C 80 20 125/81 95 Pain Intensity Generalized: Pain Intensity: 4 Transfer of Care Handoff Completed per policy Notes Mental Status: alert / awake / arousable and participated in evaluation Nausea / Vomiting: adequately controlled Pain: adequately controlled Airway Patency, RR, SpO2: stable & adequate BP & HR: stable & adequate Hydration State: stable & adequate Neuraxial Anesthesia: was administered and sensory block is resolving Anesthetic Complications: no major complications apparent and Pt Satisfied with anesthetic care
--- NOTE | 2021-07-04 13:01 | XRay Report ---
XR knee LT 1 or 2V routine CLINICAL HISTORY: Postoperative evaluation. COMPARISON: Left knee radiographs April 25, 2021. FINDINGS: Alignment of the total left knee arthroplasty is anatomic. No periprosthetic fracture or u nexpected radiopaque foreign bodies are present. There are skin xu. IMPRESSION: Expected findings following total left knee arthroplasty. ACT 112: Negative or not required by law. Electronically signed by: Dc Hart M.D. 07/04/2021 12:58 PM
[2021-07-04] MEDS ORDERED: ALUMINUM/MAGNESIUM SUSP 30 ML UDC PO PRN (13:37)
[2021-07-04] MEDS ORDERED: bisacodyL 10 MG SUPP PR PRN (13:37)
[2021-07-04] MEDS ORDERED: HYDROmorphone INJ 0.5 MG/0.5 ML SYR IV PRN (13:37)
[2021-07-04] MEDS ORDERED: ONDANSETRON INJ 2 MG/ML 2 ML VIAL IV PRN (13:37)
[2021-07-04] MEDS ORDERED: NALOXONE HCL 0.4 MG/1 ML VIAL/CARP IV PRN (13:37)
[2021-07-04] MEDS ORDERED: MAGNESIUM HYDROXIDE SUSP 30 ML UDC PO PRN (13:37)
[2021-07-04] MEDS ORDERED: METOCLOPRAMIDE HCL INJ 5 MG/ML 2 ML VIAL IV PRN (13:37)
[2021-07-04] MEDS ORDERED: oxyCODONE HCL IR 5 MG TAB (IMMEDIATE RELEASE) PO PRN (13:37)
[2021-07-04] MEDS ORDERED: ONDANSETRON 4 MG OD TAB PO PRN (14:05)
[2021-07-04] MEDS ORDERED: PSEUDOEPHEDRINE HCL 30 MG TAB PO PRN (14:13)
[2021-07-04] MEDS: SODIUM CHLORIDE 0.9% 1000ML 1,000 ML IV SCH (15:39)
[2021-07-04] MEDS: KETOROLAC 30 MG/ML VIAL IV SCH ×2 (15:40→20:52)
[2021-07-04] MEDS: ACETAMINOPHEN 500 MG TAB PO SCH ×2 (15:40→22:08)
--- NOTE | 2021-07-04 17:27 | Operative Report ---
PG Post Operative Report Pre & Post Diagnosis Operation Date: 07/04/21 10:40 Pre-Op Diagnosis: Left knee osteoarthritis Post-Op Diagnosis: Left knee osteoarthritis I identified the patient and participated in the time-out.: Yes Procedure Operation Date: 07/04/21 10:40 Actual Procedures p Left Total Knee Arthroplasty(Left) - Josue Vale MD Surgeon Josue Vale MD [place] Clerk Andrey Eugene PA-C Estimated Blood Loss 100 Findings Consistent with Post-Op Diagnosis Operative findings revealed advanced left knee medial compartment DJD with grade 4 disease of the medial femoral condyle medial tibial plateau. The rest of his knee is pretty well spared. He had a varus deformity to his knee. Not much eburnation. Small osteophytes medially. He did have extensive full-thickness cartilage loss medially. Specimens Left knee sent for pathology. Anesthesia Type Spinal MAC Complications none Disposition Accompanied Patient To Recovery: No Indications Patient is a 66-year-old gentleman said a long history of bilateral knee pain discomfort. He has been through extensive conservative treatment in the past. He has right knee replaced 2 years ago and is done well from this. He continued be limited by left knee pain. He elected proceed with surgical treatment. Description of Procedure Operative implants consist of: 1. Biomet Vanguard size 70 left posterior stabilized femoral component. 2. Biomet size 75 tibial tray. 3. 10 mm posterior stabilized polyethylene insert. 4. 31 x 8 all probably patella. The patient was taken the operating, identified, placed on the operating table supine position protectors were properly padded. IV antibiotics 5 by anesthesia team. A spinal anesthetic of been implemented holding area. Baker cath was placed in sterile fashion. Left atrium was then placed in the left lower extremity was then prepped and draped in usual sterile fashion. The left leg was elevated exsanguinated with use of an Esmarch in terms playset 300 mmHg. An anterior posterior left knee was then performed through longitudinal incision centered over the patella. Sharp dissection was got through subcutaneous tissue down to the extensor mechanism. A medial parapatellar arthrotomy incision was made. Some subperiosteal dissection was carried out medially. The fat pad was resected from each patella tendon. The lateral patellofemoral ligaments were released. Patella subluxated laterally and the knee was flexed. The osteophytes were taken off distal femur. The ACL and PCL then released from distal femur and the tibia subluxated anteriorly. The external tibial alignment jig was then placed the anterior face of the tibia and adjusted 14 mm medially. Proximal tibial cut was made remove about 3 to 4 mm of bone from the medial side. The tibia was then sized to a size 75. Attention drawn the femur. The distal femur exam with a sharp drill bit intramedullary canal was suction. A left 6 degree valgus cutting guide was placed. Distal femoral cutting block was pinned in place. Distal femoral cut was made to take an additional 3 mm bone off distal femur. The femur was then sized to a size 70. The AP cutting block was pinned parallel to the epicondylar axis which was 4 degrees of external rotation. Anterior cut, anterior chamfer, posterior cut, posterior to chamfer cuts were made. Box cutting guide was placed in just slight lateral box cut was made and the knee was flexed. The remnants of the medial and lateral menisci were excised. The osteophytes taken off the posterior aspect the femur. Trial femoral component was placed for the tibial tray was pinned in maximum external rotation and the drill and stem punch were used to create defect in proximal tibia for the tibial tray. The knee was then trialed and 10 mm insert fit most appropriately. Attention drawn the patella. The patella was cleaned of all soft tissues. Patella thickness measured 25 mm in thickness was cut down to 15. Was sized to a size 31 patella. The lug holes were drilled for the 31 patella. Lateral osteophytes removed. Patella button was placed. Knee was taken through range of motion patella tracked nicely with no thumbs test. Attention drawn to place the permanent components. All trial components were removed. Bone plug was placed into the distal femur limit blood loss put a double batch [place] G cement was mixed. A Biomet Vanguard size 70 left posterior stabilized femoral component, size 75 tibial tray, size 10 polyethylene insert 31 x 8 all probably patella then cemented in place. The knee was brought out in full extension total cement hardened. Final cement checkup then performed. Pericapsular tissues were injected with a total 100 cc of combination of 20 cc of Exparel, 30 cc normal saline, 50 cc of quarter percent Marcaine with epinephrine. Patient did receive 1 g tranexamic acid per the tech was then let down for final tourniquet time 57 minutes. Hemostasis assured with electrocautery. Extensor mechanism closed with combination 1 PDS suture #1 Vicryl suture in [id number] fashion. Extensor mechanism checked found to be intact the subcutaneous tissue was then closed with 2 Dexon suture in a buried interrupted fashion skin was closed skin xu. Leg was then cleaned and dried and sterile dressing was Xeroform, 4 x 4's, sterile cast padding, Jesus bandage were applied. Patient then transferred to the recovery room in stable condition. Patient tolerated procedure well and no complications. Andrey Eugene, my physician rn first assistant, was present for the entire procedure. His assistance was essential and required for appropriate patient positioning, prepping and draping, surgical exposure, performing the technical details of the operation, placement the implants, closure of the wound, and placement of the sterile bandage. I attest to the content of the Intraoperative Record and any orders documented therein. Any exceptions are noted below.
[2021-07-04] MEDS: ceFAZolin 2000MG 2,000 MG/15 ML SYR IV SCH (18:14)
[2021-07-04] MEDS ORDERED: TRANEXAMIC ACID / 0.7% NACL 1,000 MG/100 ML BAG IV SCH (18:30)
[2021-07-04] MEDS: TAMSULOSIN HCL 0.4 MG CAP PO SCH (20:51)
[2021-07-04] MEDS: DOCUSATE SODIUM 100 MG CAP PO SCH (20:51)
[2021-07-04] MEDS: ASPIRIN 81 MG ECTAB PO SCH (20:51)
[2021-07-04] MEDS: ASCORBIC ACID 500 MG TAB PO SCH (20:51)
[2021-07-04] MEDS: TAPENTADOL HCL ER 50 MG TABCR PO SCH (20:52)
[2021-07-04] MEDS ORDERED: NON-FORMULARY MEDICATION (Potassium Gluconate 595 mg (99 mg) Tablet) PO SCH (21:00)
[2021-07-04] MEDS ORDERED: SENNA 8.6 MG TAB PO SCH (21:00)
[2021-07-05] MEDS: SODIUM CHLORIDE 0.9% 1000ML 1,000 ML IV SCH (01:34)
[2021-07-05] MEDS: ceFAZolin 2000MG 2,000 MG/15 ML SYR IV SCH (03:35)
[2021-07-05] MEDS: KETOROLAC 30 MG/ML VIAL IV SCH ×2 (03:35→08:33)
[2021-07-05] MEDS: ACETAMINOPHEN 500 MG TAB PO SCH (06:05)
[2021-07-05] MEDS ORDERED: LEVOTHYROXINE SODIUM 125 MCG TABLET PO SCH ×2 (06:30)
[2021-07-05] MEDS ORDERED: dexAMETHasone 10 MG in SYRINGE 0 ML IV SCH (08:00)
[2021-07-05 08:06] LABS: Calcium 8.5 mg/dl (8.5-10.1); Creatinine Clr Calc Pharmacy 126.6 ml/min; Est GFR (African American) 112.4 ml/min; Est GFR (Non-African American) 96.9 ml/min; Potassium 3.9 mmol/L (3.5-5.1)
[2021-07-05 08:13] LABS: Hematocrit (blood only) 35.4 % (42-52); Hemoglobin 11.8 g/dL (14.0-18.0); Mean Corpuscular Hgb Conc 33.3 g/dL (32-36); Mean Corpuscular Volume 98.9 fL (80-100); Mean Platelet Volume 10.9 fL (7.4-10.4); Platelet Count 187 K/uL (130-400); RDW Standard Deviation 47.6 fL (36.4-46.3); Red Blood Count 3.58 M/uL (4.7-6.1); White Blood Count 8.29 K/uL (4.8-10.8)
[2021-07-05] MEDS: TAPENTADOL HCL ER 50 MG TABCR PO SCH (08:31)
[2021-07-05] MEDS: TAMSULOSIN HCL 0.4 MG CAP PO SCH (08:32)
[2021-07-05] MEDS: ASCORBIC ACID 500 MG TAB PO SCH (08:33)
[2021-07-05] MEDS: ASPIRIN 81 MG ECTAB PO SCH (08:33)
[2021-07-05] MEDS: DOCUSATE SODIUM 100 MG CAP PO SCH (08:33)
--- NOTE | 2021-07-05 08:38 | Progress Notes ---
DATE OF SERVICE: 07/05/2021. SUBJECTIVE: A 66-year-old gentleman postoperative day 1 from a left knee replacement. He is doing p retty well. Had a reasonable night. Pain is controlled. No chest pain or shortness of breath. Not feeling dizzy or lightheaded. Hoping to go home today. OBJECTIVE: VITAL SIGNS: Temperature 36.6. Vital signs are stable. GENERAL: Shows a pleasant middle-aged male. He is sitting up in bed, looks pretty comfortable this morning. LUNGS: Clear to auscultation. HEART: Regular rate and rhythm. ABDOMEN: Soft, nontender, nondistended. EXTREMITIES: Grossly neurovascularly intact except as follows: Examination of the left leg reveals the dressing to be clean, dry, and intact. The leg is well aligned. He can dorsiflex and plantarfle x his foot appropriately. He is neurologically intact. LABORATORY DATA: Labs are still pending. ASSESSMENT: A 66-year-old gentleman, postoperative day 1 from a left knee replacement, doing well. His pain is controlled. He is neurologically intact. Hoping to go home today. PLAN: 1. DVT prophylaxis to include thigh-high TEDs, SCDs, and aspirin twice a day. 2. PT, OT, weightbear as tolerated. Left total knee protocol. 3. Pain control, doing well with current pain regimen. 4. Disposition: Plan to discharge to home with some home health later today. Job ID: [id number]
[2021-07-05] MEDS ORDERED: MULTIVITAMIN TAB PO SCH (09:00)
[2021-07-05] MEDS ORDERED: DOCUSATE SODIUM/SENNA 50/8.6MG TAB PO SCH (09:00)
[2021-07-05] MEDS ORDERED: NON-FORMULARY MEDICATION (Selenium 200 mcg Tablet) PO SCH (09:00)
[2021-07-05] MEDS ORDERED: CHOLECALCIFEROL 5,000 UNITS 125 MCG TAB PO SCH (09:00)
[2021-07-05] MEDS ORDERED: VITAMIN B COMPLEX TAB PO SCH (09:00)
== END 2021-07-05 13:03 | disposition home health service (06) ==
LOC: PACUINP 07:58 → ASU 07:58 → 3W 14:22